=== PATIENT | female | born 1970 | race Caucasian/White ===

== ENCOUNTER 2019-08-10 16:40 | Emergency (ER) | payer OTHER ==
[~2019-08-10] VITALS: Ht 172.7 cm; Wt 90.9 kg
[~2019-08-10 16:40] MED LIST: HYDR-309 PO; HYDR25TA PO; LISI5TAB PO
[2019-08-10 16:43] VITALS: BP 132/89
[2019-08-10 17:05] LABS: GLUCOSE,POINT OF CARE 97 MG/DL (70-110)
[2019-08-10] MEDS ORDERED: ValACYclovir HCL 500 MG TABLET PO ONE (20:45)
[2019-08-10] MEDS ORDERED: GABAPENTIN 100 MG CAPSULE PO ONE (20:45)
== END 2019-08-10 21:15 | disposition home or self-care (01) ==
LOC: EMS 16:44
DX: B02.9 Zoster without complications (principal); I10 Essential (primary) hypertension; F17.210 Nicotine dependence, cigarettes, uncomplicated; Z91.040 Latex allergy status; Z79.899 Other long term (current) drug therapy

== ENCOUNTER 2021-03-29 14:53 | Inpatient (IN) | payer OTHER ==
[~2021-03-29] VITALS: Ht 172.7 cm; Wt 94.0 kg
[~2021-03-29 14:53] MED LIST changes: -HYDR25TA PO; +HYDR25TA2 PO
[2021-03-29] MEDS ORDERED: INSNPH SQ ×2 (15:03)
[2021-03-29] MEDS ORDERED: IBUP-1506 PO (15:03)
[2021-03-29] MEDS ORDERED: ONDANSETRON HCL 4 MG/2 ML VIAL IVP ONE (15:30)
[2021-03-29] MEDS ORDERED: MORPHINE SULFATE 4 MG/ML SYRINGE IVP ONE (15:30)
[2021-03-29] MEDS ORDERED: SODIUM CHLORIDE 0.9% 1,000 ML IV ONE (15:30)
[2021-03-29 16:05] LABS: EOSINOPHILS % (AUTO) 0.4 % (1.0-6.0); HEMATOCRIT 44.2 % (36-46); HEMOGLOBIN 14.6 g/dL (12.0-16.0); LYMPHOCYTES # (AUTO) 1.6 K/uL (1.0-4.8); LYMPHOCYTES % (AUTO) 21.3 % (22.0-44.0); MEAN CORPUSCULAR HEMOGLOBIN 30.6 pg (26.0-34.0); MEAN CORPUSCULAR HGB CONC 33.1 G/dL (31.0-37.0); MEAN CORPUSCULAR VOLUME 93 fL (80-100); MONOCYTES # (AUTO) 0.4 K/uL (0.1-1.0); MONOCYTES % (AUTO) 6.1 % (2.0-9.0); NEUTROPHILS # (AUTO) 5.3 K/uL (1.8-7.7); NEUTROPHILS % (AUTO) 71.2 % (40.0-70.0); PLATELET COUNT (AUTO) 407 K/uL (150-450); RED BLOOD CELL COUNT(AUTO) 4.79 MIL/uL (4.00-5.20); RED CELL DISTRIBUTION WIDTH 13.2 % (11.5-14.5)
[2021-03-29 16:12] LABS: APPEARANCE,URINE CLEAR (CLEAR); BILIRUBIN,URINE NEGATIVE (NEGATIVE); GLUCOSE, URINE (UA) NEGATIVE (NEGATIVE); KETONES,URINE NEGATIVE (NEGATIVE); LEUKOCYTE ESTERASE ,URINE NEGATIVE (NEGATIVE); NITRATE,URINE NEGATIVE (NEGATIVE); OCCULT BLOOD,URINE NEGATIVE (NEGATIVE); PROTEIN,URINE NEGATIVE (NEGATIVE); UROBILINOGEN,URINE 0.2 mg/dL (<=1.0)
[2021-03-29 16:15] LABS: ANION GAP 8 mmol/L (8-16); CALCIUM, TOTAL 9.5 mg/dL (8.8-10.5); CARBON DIOXIDE 28 mmol/L (22-29); CHLORIDE 102 mmol/L (98-107); CREATININE 0.77 mg/dL (0.60-1.30); GLOMERULAR FILTR. RATE CALC > 60 mL/min (>60); GLUCOSE,RANDOM 112 mg/dL (70-110); SODIUM SERUM 138 mmol/L (136-145); UREA NITROGEN, BLOOD 13 mg/dL (7-18)
[2021-03-29 16:17] LABS: INR 0.9 (0.9-1.1); PROTHROMBIN TIME 10.1 SEC (9.4-11.6)
[2021-03-29 16:27] LABS: BACTERIA,URINE Few /HPF (None Seen); RBC,URINE None Seen /HPF (0-2)
[2021-03-29 16:28] LABS: SQUAMOUS EPITHELIAL CELL,UR Few /LPF (None Seen); WBC,URINE 0-2 /HPF (0-5)
[2021-03-29 16:34] LABS: ALANINE AMINOTRANSFERASE 20 U/L (12-78); ALBUMIN 3.8 g/dL (3.4-5.0); ALKALINE PHOSPHATASE 75 U/L (46-116); ASPARTATE AMINOTRANSFERASE 15 U/L (15-37); BILIRUBIN,TOTAL 0.8 mg/dL (0.1-1.0); HCG,QUANTITATIVE < 1 mIU/mL (0-6); LIPASE 90 U/L (73-393); TOTAL PROTEIN, SERUM 8.6 g/dL (6.4-8.2)
[2021-03-29] MEDS ORDERED: LISI-893 PO (17:42)
[2021-03-29] MEDS ORDERED: KETOROLAC TROMETHAMINE 30 MG/ML VIAL IVP ONE (17:45)
[2021-03-29 17:58] LABS: COVID AG,FIA SOURCE NASOPHARYNGEAL
[2021-03-29] MEDS ORDERED: SODIUM CHLORIDE 0.9% 100 ML ONE (18:17)
[2021-03-29] MEDS ORDERED: IOHEXOL 350 MG/ML 100 ML VIAL ONE (18:17)
[2021-03-29] MEDS ORDERED: MAGNESIUM HYDROXIDE SUSPENSION 30 ML UDCUP PO PRN (20:00)
[2021-03-29] MEDS ORDERED: INSULIN LISPRO 100 UNITS/ML SQ PRN (20:00)
[2021-03-29] MEDS ORDERED: ZOLPIDEM TARTRATE 5 MG TABLET PO PRN (20:00)
[2021-03-29] MEDS ORDERED: DEXTROSE 50%-WATER 25 GM/50 ML SYRINGE IVP PRN (20:00)
[2021-03-29 21:01] VITALS: BP 157/103
[2021-03-29] MEDS: ACETAMINOPHEN 325 MG TABLET PO PRN (21:07)
[2021-03-29] MEDS: ONDANSETRON HCL 4 MG/2 ML VIAL IVP PRN (21:07)
[2021-03-29 23:10] VITALS: BP 146/88
[2021-03-29 23:37] LABS: GLUCOMETER DEV NAME(LOC) 5N.1C; GLUCOSE,POINT OF CARE 87 MG/DL (70-110)
[2021-03-30 03:35] VITALS: BP 136/78
[2021-03-30] MEDS: ACETAMINOPHEN 325 MG TABLET PO PRN ×2 (05:57→11:54)
[2021-03-30 07:13] VITALS: BP 141/89
[2021-03-30] MEDS: FAMOTIDINE 20 MG TABLET PO SCH (07:53)
[2021-03-30 11:18] LABS: GLUCOMETER DEV NAME(LOC) 5N.1C; GLUCOSE,POINT OF CARE 94 MG/DL (70-110)
[2021-03-30 11:48] VITALS: BP 146/78
[2021-03-30] MEDS: ONDANSETRON HCL 4 MG/2 ML VIAL IVP PRN (11:54)
[2021-03-30] MEDS ORDERED: SODIUM CHLORIDE 0.9% 1,000 ML IV ONE (13:15)
[2021-03-30] MEDS: IBUPROFEN 400 MG TABLET PO PRN (16:00)
[2021-03-30] MEDS: HEPARIN SODIUM,PORCINE 5,000 UNITS/ML VIAL SQ SCH ×2 (16:00→23:52)
[2021-03-30 16:20] VITALS: BP 120/69
[2021-03-30 17:18] LABS: GLUCOMETER DEV NAME(LOC) 5S.1; GLUCOSE,POINT OF CARE 89 MG/DL (70-110)
[2021-03-30 17:58] LABS: GLUCOMETER DEV NAME(LOC) 5S.2B; GLUCOSE,POINT OF CARE 96 MG/DL (70-110)
[2021-03-30 20:01] VITALS: BP 128/75
[2021-03-31] VITALS (7 sets, daily range): BP systolic 121–144; BP diastolic 70–89
[2021-03-31 03:18] LABS: GLUCOMETER DEV NAME(LOC) 5N.1C; GLUCOSE,POINT OF CARE 96 MG/DL (70-110)
[2021-03-31] MEDS: FAMOTIDINE 20 MG TABLET PO SCH (08:43)
[2021-03-31] MEDS: HEPARIN SODIUM,PORCINE 5,000 UNITS/ML VIAL SQ SCH ×3 (08:43→23:34)
[2021-03-31] MEDS: IBUPROFEN 400 MG TABLET PO PRN (08:43)
[2021-03-31 10:10] LABS: GLUCOMETER DEV NAME(LOC) 5N.1C; GLUCOSE,POINT OF CARE 83 MG/DL (70-110)
[2021-03-31] MEDS ORDERED: BISMUTH SUBSALICYLATE 524 MG/30 ML SUSPENSION UDCUP PO PRN (13:30)
[2021-03-31] MEDS ORDERED: LEVOFLOXACIN 500 MG/D5% WATER 100 ML IV SCH (14:00)
[2021-03-31] MEDS ORDERED: SODIUM CHLORIDE 0.9% 500 ML IV ONE (14:39)
[2021-03-31] MEDS: ACETAMINOPHEN 325 MG TABLET PO PRN (14:52)
[2021-03-31] MEDS: LOPERAMIDE HCL 2 MG CAPSULE PO PRN ×2 (15:06→20:05)
[2021-03-31 17:50] LABS: C.DIFF GDH ANTIGEN, Stool Negative (Negative); C.DIFF TOXINS A&B, Stool Negative (Negative)
[2021-04-01 04:36] VITALS: BP 127/72
[2021-04-01 06:56] LABS: BASOPHILS % (AUTO) 0.8 % (0.0-2.0); HEMATOCRIT 42.5 % (36-46); HEMOGLOBIN 13.8 g/dL (12.0-16.0); LYMPHOCYTES # (AUTO) 3.1 K/uL (1.0-4.8); LYMPHOCYTES % (AUTO) 41.6 % (22.0-44.0); MEAN CORPUSCULAR HEMOGLOBIN 30.1 pg (26.0-34.0); MEAN CORPUSCULAR HGB CONC 32.6 G/dL (31.0-37.0); MEAN CORPUSCULAR VOLUME 93 fL (80-100); MONOCYTES # (AUTO) 0.6 K/uL (0.1-1.0); MONOCYTES % (AUTO) 8.4 % (2.0-9.0); NEUTROPHILS # (AUTO) 3.5 K/uL (1.8-7.7); NEUTROPHILS % (AUTO) 47.2 % (40.0-70.0); PLATELET COUNT (AUTO) 373 K/uL (150-450); RED BLOOD CELL COUNT(AUTO) 4.59 MIL/uL (4.00-5.20); RED CELL DISTRIBUTION WIDTH 13.3 % (11.5-14.5)
[2021-04-01 07:40] LABS: ALANINE AMINOTRANSFERASE 21 U/L (12-78); ALBUMIN 3.1 g/dL (3.4-5.0); ALKALINE PHOSPHATASE 60 U/L (46-116); ANION GAP 6 mmol/L (8-16); ASPARTATE AMINOTRANSFERASE 11 U/L (15-37); BILIRUBIN,TOTAL 0.7 mg/dL (0.1-1.0); CALCIUM, TOTAL 8.8 mg/dL (8.8-10.5); CARBON DIOXIDE 27 mmol/L (22-29); CHLORIDE 103 mmol/L (98-107); CREATININE 0.88 mg/dL (0.60-1.30); GLOMERULAR FILTR. RATE CALC > 60 mL/min (>60); GLUCOSE,RANDOM 89 mg/dL (70-110); SODIUM SERUM 136 mmol/L (136-145); UREA NITROGEN, BLOOD 16 mg/dL (7-18)
[2021-04-01] MEDS: FAMOTIDINE 20 MG TABLET PO SCH (08:13)
[2021-04-01] MEDS: HEPARIN SODIUM,PORCINE 5,000 UNITS/ML VIAL SQ SCH (08:14)
[2021-04-01] MEDS: ACETAMINOPHEN 325 MG TABLET PO PRN (08:14)
[2021-04-01 08:15] VITALS: BP 124/60
[2021-04-01 10:27] LABS: GLUCOMETER DEV NAME(LOC) 5S.2B; GLUCOSE,POINT OF CARE 118 MG/DL (70-110)
[2021-04-01] MEDS ORDERED: LEVOFLOXACIN 500 MG/D5% WATER 100 ML IV ONE (10:30)
[2021-04-01] MEDS ORDERED: FAMO20 PO (11:07)
[2021-04-01] MEDS ORDERED: LEVO-72 PO (11:17)
[2021-04-01 11:35] VITALS: BP 147/79
[2021-04-01] MEDS ORDERED: ACET-2247 PO (11:47)
[2021-04-01] MEDS ORDERED: BISM525O10 PO (11:49)
[2021-04-01] MEDS ORDERED: INSU100V SQ (11:51)
[2021-04-01] MEDS ORDERED: LOPE2 PO (11:52)
[2021-04-01] MEDS ORDERED: MOM30 PO (11:52)
[2021-04-01 15:26] LABS: GLUCOMETER DEV NAME(LOC) 5N.1C; GLUCOSE,POINT OF CARE 88 MG/DL (70-110)
[2021-04-01 15:26] LABS: GLUCOMETER DEV NAME(LOC) 5N.1C; GLUCOSE,POINT OF CARE 108 MG/DL (70-110)
[2021-04-01 15:45] LABS: GLUCOMETER DEV NAME(LOC) 5S.1; GLUCOSE,POINT OF CARE 81 MG/DL (70-110)
[2021-04-01 15:46] LABS: GLUCOMETER DEV NAME(LOC) 5S.2B; GLUCOSE,POINT OF CARE 116 MG/DL (70-110)
[2021-04-02] MEDS ORDERED: LEVOFLOXACIN 500 MG TABLET PO SCH (09:00)
== END 2021-04-01 14:55 | DRG 156 ==
LOC: EMS 15:03 → 5S 19:46
PROVIDERS: ADMIT Internal Medicine; ATTEND Internal Medicine
DX: H60.91 Unspecified otitis externa, right ear (principal); R55 Syncope and collapse; E11.9 Type 2 diabetes mellitus without complications; N83.201 Unspecified ovarian cyst, right side; E66.9 Obesity, unspecified; F17.200 Nicotine dependence, unspecified, uncomplicated; I10 Essential (primary) hypertension; Z68.31 Body mass index [BMI] 31.0-31.9, adult; Z91.040 Latex allergy status; Z20.822 Contact with and (suspected) exposure to COVID-19; Z85.3 Personal history of malignant neoplasm of breast; Z85.830 Personal history of malignant neoplasm of bone
CPT/HCPCS: 74177; 76856; 80053; 81001; 82962; 83605; 83690; 84484; 84702; 85025; 85610; 87324; 87449; 93005; 97116; 97162; 97530; 99285; A9575; J1644; J1885; J1956; J2270; J2405; J7030; J7040; J7050

== ENCOUNTER 2023-01-12 12:11 | Emergency (ER) | payer MEDICAID, OTHER ==
[~2023-01-12] VITALS: Ht 175.3 cm; Wt 106.8 kg
[~2023-01-12 12:11] MED LIST changes: +ACET-2247 PO; +BISM525O10 PO; +FAMO20 PO; -HYDR-309 PO; -HYDR25TA2 PO; +IBUP-1506 PO; +INSU100V SQ; +LEVO-72 PO; -LISI5TAB PO; +LOPE-232 PO; +MAGN-169 PO
[2023-01-12] MEDS ORDERED: DOXY-354 PO (12:20)
[2023-01-12] MEDS ORDERED: METF-1211 PO ×2 (12:20→15:04)
[2023-01-12] MEDS ORDERED: LISI-892 PO (12:20)
[2023-01-12] MEDS ORDERED: HYDROCODONE/ACETAMINOPHEN 5-325 MG TABLET PO ONE (13:00)
[2023-01-12 13:25] LABS: BASOPHILS % (AUTO) 1.3 % (0.0-2.0); EOSINOPHILS % (AUTO) 2.4 % (1.0-6.0); HEMATOCRIT 39.5 % (36-46); HEMOGLOBIN 13.4 g/dL (12.0-16.0); LYMPHOCYTES # (AUTO) 2.2 K/uL (1.0-4.8); LYMPHOCYTES % (AUTO) 35.9 % (22.0-44.0); MEAN CORPUSCULAR HEMOGLOBIN 31.4 pg (26.0-34.0); MEAN CORPUSCULAR HGB CONC 33.8 G/dL (31.0-37.0); MEAN CORPUSCULAR VOLUME 93 fL (80-100); MONOCYTES # (AUTO) 0.5 K/uL (0.1-1.0); MONOCYTES % (AUTO) 7.7 % (2.0-9.0); NEUTROPHILS # (AUTO) 3.2 K/uL (1.8-7.7); NEUTROPHILS % (AUTO) 52.7 % (40.0-70.0); PLATELET COUNT (AUTO) 390 K/uL (150-450); RED BLOOD CELL COUNT(AUTO) 4.26 MIL/uL (4.00-5.20); RED CELL DISTRIBUTION WIDTH 13.3 % (11.5-14.5)
[2023-01-12 13:43] LABS: ANION GAP 7 mmol/L (8-16); CARBON DIOXIDE 26 mmol/L (22-29); CHLORIDE 104 mmol/L (98-107); CREATININE 0.85 mg/dL (0.60-1.30); GLOMERULAR FILTR. RATE CALC > 60 mL/min (>60); GLUCOSE,RANDOM 119 mg/dL (70-110); POTASSIUM 4.3 mmol/L (3.5-5.1); SODIUM SERUM 137 mmol/L (136-145); UREA NITROGEN, BLOOD 14 mg/dL (7-18)
[2023-01-12 13:49] LABS: ALANINE AMINOTRANSFERASE 12 U/L (12-78); ALBUMIN 3.6 g/dL (3.4-5.0); ALKALINE PHOSPHATASE 62 U/L (46-116); ASPARTATE AMINOTRANSFERASE 16 U/L (15-37); BILIRUBIN,TOTAL 0.7 mg/dL (0.1-1.0); TOTAL PROTEIN, SERUM 7.6 g/dL (6.4-8.2)
[2023-01-12] MEDS ORDERED: IBUP-1554 PO (15:04)
[2023-01-12] MEDS ORDERED: HYDR-4723 PO (15:04)
[2023-01-12] MEDS ORDERED: LISI-894 PO (15:04)
[2023-01-12] MEDS ORDERED: MECL-134 PO (15:06)
[2023-01-12 15:28] VITALS: BP 138/88
== END 2023-01-12 15:30 | disposition home or self-care (01) ==
LOC: EMS 12:15
DX: H53.8 Other visual disturbances (principal); R51.9 Headache, unspecified; R42 Dizziness and giddiness; I10 Essential (primary) hypertension; E11.9 Type 2 diabetes mellitus without complications; Z85.9 Personal history of malignant neoplasm, unspecified; Z91.040 Latex allergy status
CPT/HCPCS: 70450; 80053; 85025; 99284

== ENCOUNTER 2023-03-01 14:11 | Emergency (ER) | payer MEDICAID ==
[~2023-03-01] VITALS: Ht 175.3 cm; Wt 104.5 kg
[~2023-03-01 14:11] MED LIST changes: -ACET-2247 PO; -BISM525O10 PO; +DOXY-354 PO; -FAMO20 PO; +HYDR-4723 PO; -IBUP-1506 PO; +IBUP-1554 PO; -INSU100V SQ; -LEVO-72 PO; +LISI-892 PO; +LISI-894 PO; -LOPE-232 PO; -MAGN-169 PO; +MECL-134 PO; +METF-1211 PO
[2023-03-01 15:22] LABS: GLUCOMETER DEV NAME(LOC) ERT.5; GLUCOSE,POINT OF CARE 88 MG/DL (70-110)
[2023-03-01 16:05] LABS: BASOPHILS % (AUTO) 1.1 % (0.0-2.0); EOSINOPHILS % (AUTO) 0.7 % (1.0-6.0); HEMATOCRIT 41.6 % (36-46); LYMPHOCYTES % (AUTO) 21.9 % (22.0-44.0); MEAN CORPUSCULAR HEMOGLOBIN 31.4 pg (26.0-34.0); MEAN CORPUSCULAR HGB CONC 33.7 G/dL (31.0-37.0); MEAN CORPUSCULAR VOLUME 93 fL (80-100); MONOCYTES # (AUTO) 0.5 K/uL (0.1-1.0); MONOCYTES % (AUTO) 6.1 % (2.0-9.0); NEUTROPHILS # (AUTO) 6.4 K/uL (1.8-7.7); NEUTROPHILS % (AUTO) 70.2 % (40.0-70.0); PLATELET COUNT (AUTO) 420 K/uL (150-450); RED BLOOD CELL COUNT(AUTO) 4.46 MIL/uL (4.00-5.20); RED CELL DISTRIBUTION WIDTH 13.5 % (11.5-14.5)
[2023-03-01 16:11] LABS: ANION GAP 12 mmol/L (8-16); CALCIUM, TOTAL 9.2 mg/dL (8.8-10.5); CARBON DIOXIDE 26 mmol/L (22-29); CHLORIDE 100 mmol/L (98-107); CREATININE 0.97 mg/dL (0.60-1.30); GLOMERULAR FILTR. RATE CALC > 60 mL/min (>60); GLUCOSE,RANDOM 108 mg/dL (70-110); POTASSIUM 3.6 mmol/L (3.5-5.1); SODIUM SERUM 138 mmol/L (136-145)
[2023-03-01 16:24] LABS: ALANINE AMINOTRANSFERASE 18 U/L (12-78); ALBUMIN 3.7 g/dL (3.4-5.0); ALKALINE PHOSPHATASE 61 U/L (46-116); ASPARTATE AMINOTRANSFERASE 14 U/L (15-37); BILIRUBIN,TOTAL 1.2 mg/dL (0.1-1.0); HCG,QUANTITATIVE < 1 mIU/mL (0-6); TOTAL PROTEIN, SERUM 8.4 g/dL (6.4-8.2)
[2023-03-01 17:21] LABS: APPEARANCE,URINE TURBID (CLEAR); BILIRUBIN,URINE NEGATIVE (NEGATIVE); GLUCOSE, URINE (UA) NEGATIVE (NEGATIVE); KETONES,URINE TRACE mg/dL (NEGATIVE); LEUKOCYTE ESTERASE ,URINE LARGE (NEGATIVE); NITRATE,URINE POSITIVE (NEGATIVE); OCCULT BLOOD,URINE SMALL (NEGATIVE); PROTEIN,URINE 30-70 mg/dL (NEGATIVE); SPECIFIC GRAVITIY, URINE 1.018 (1.003-1.030); UROBILINOGEN,URINE <=1.0 mg/dL (<=1.0)
[2023-03-01 17:30] LABS: BACTERIA,URINE Many /HPF (None Seen); SQUAMOUS EPITHELIAL CELL,UR Moderate /LPF (None Seen); WBC,URINE 51-100 /HPF (0-5)
[2023-03-01] MEDS ORDERED: SULFAMETHOX/TRIMETH DS 800-160 MG/TABLET PO ONE (17:30)
[2023-03-01] MEDS ORDERED: PHENAZOPYRIDINE HCL 100 MG TABLET PO ONE (17:30)
[2023-03-01 18:50] VITALS: BP 135/60
[2023-03-01] MEDS ORDERED: PHEN-674 PO (18:51)
[2023-03-01] MEDS ORDERED: SULF-261 PO (18:51)
== END 2023-03-01 19:00 | disposition home or self-care (01) ==
LOC: EMS 14:23
DX: N39.0 Urinary tract infection, site not specified (principal); Z98.890 Other specified postprocedural states; Z91.040 Latex allergy status
CPT/HCPCS: 80053; 81001; 82962; 84702; 85025; 87086; 87186; 99283

== ENCOUNTER 2024-12-30 17:40 | Inpatient (IN) | payer MEDICAID, OTHER ==
[~2024-12-30] VITALS: Ht 175.3 cm; Wt 91.9 kg
[~2024-12-30 17:40] MED LIST changes: -DOXY-354 PO; -HYDR-4723 PO; -IBUP-1554 PO; -LISI-892 PO; +PHEN-674 PO; +SULF-261 PO
[2024-12-30 18:10] LABS: BASOPHILS % (AUTO) 0.9 % (0.0-2.0); EOSINOPHILS % (AUTO) 1.4 % (1.0-6.0); HEMATOCRIT 36.8 % (36-46); HEMOGLOBIN 12.2 g/dL (12.0-16.0); LYMPHOCYTES # (AUTO) 2.3 K/uL (1.0-4.8); LYMPHOCYTES % (AUTO) 42.2 % (22.0-44.0); MEAN CORPUSCULAR HEMOGLOBIN 33.5 pg (26.0-34.0); MEAN CORPUSCULAR HGB CONC 33.1 G/dL (31.0-37.0); MEAN CORPUSCULAR VOLUME 101 fL (80-100); MONOCYTES # (AUTO) 0.4 K/uL (0.1-1.0); MONOCYTES % (AUTO) 7.1 % (2.0-9.0); NEUTROPHILS # (AUTO) 2.6 K/uL (1.8-7.7); NEUTROPHILS % (AUTO) 48.4 % (40.0-70.0); PLATELET COUNT (AUTO) 313 K/uL (150-450); RED BLOOD CELL COUNT(AUTO) 3.64 MIL/uL (4.00-5.20); RED CELL DISTRIBUTION WIDTH 15.3 % (11.5-14.5); WHITE BLOOD COUNT (AUTO) 5.5 K/uL (4.5-11.0)
[2024-12-30 18:14] LABS: ANION GAP 7 mmol/L (8-16); CALCIUM, TOTAL 9.2 mg/dL (8.8-10.5); CARBON DIOXIDE 29 mmol/L (22-29); CHLORIDE 104 mmol/L (98-107); CREATININE 1.19 mg/dL (0.60-1.30); GLOMERULAR FILTR. RATE CALC 48 mL/min (>60); GLUCOSE,RANDOM 98 mg/dL (70-110); POTASSIUM 4.8 mmol/L (3.5-5.1); SODIUM SERUM 140 mmol/L (136-145); UREA NITROGEN, BLOOD 17 mg/dL (7-18)
[2024-12-30] MEDS: MORPHINE SULFATE 2 MG/ML SYRINGE IVP ONE (18:18)
[2024-12-30] MEDS: ACETAMINOPHEN 500 MG TABLET PO ONE (18:19)
[2024-12-30] MEDS: ONDANSETRON HCL 4 MG/2 ML VIAL IVP ONE (18:19)
[2024-12-30 18:20] LABS: ALBUMIN 3.6 g/dL (3.4-5.0); B-TYPE NATRIURETIC PEPTIDE 8 pg/mL (0-100); BILIRUBIN,DIRECT 0.1 mg/dL (0.00-0.20); BILIRUBIN,TOTAL 0.5 mg/dL (0.1-1.0); TOTAL PROTEIN, SERUM 7.4 g/dL (6.4-8.2)
[2024-12-30] MEDS ORDERED: SODIUM CHLORIDE 0.9% 100 ML ONE (18:23)
[2024-12-30] MEDS ORDERED: IOHEXOL 350 MG/ML 100 ML VIAL ONE (18:23)
[2024-12-30] MEDS ORDERED: 0.9% SODIUM CHLORIDE 10 ML SYRINGE IVP ONE (18:23)
[2024-12-30 18:24] LABS: CREATINE KINASE, TOTAL ONLY 168 U/L (26-192); TROPONIN I-HIGH SENSITIVITY 5 ng/L (<51)
[2024-12-30 18:43] LABS: APPEARANCE,URINE CLEAR (CLEAR); BILIRUBIN,URINE NEGATIVE (NEGATIVE); COLOR,URINE COLORLESS (YELLOW); GLUCOSE, URINE (UA) NEGATIVE (NEGATIVE); KETONES,URINE NEGATIVE (NEGATIVE); LEUKOCYTE ESTERASE ,URINE MODERATE (NEGATIVE); NITRATE,URINE NEGATIVE (NEGATIVE); OCCULT BLOOD,URINE NEGATIVE (NEGATIVE); PH,URINE 5.5 (5.0-8.0); PROTEIN,URINE NEGATIVE (NEGATIVE); SPECIFIC GRAVITIY, URINE 1.008 (1.003-1.030); UROBILINOGEN,URINE <=1.0 mg/dL (<=1.0)
[2024-12-30 18:54] LABS: BACTERIA,URINE Few /HPF (None Seen); RBC,URINE 0-2 /HPF (0-2); SQUAMOUS EPITHELIAL CELL,UR Moderate /LPF (None Seen)
[2024-12-30] MEDS ORDERED: DEXTROSE 50%-WATER 25 GM/50 ML SYRINGE IVP PRN (19:45)
[2024-12-30] MEDS ORDERED: ZOLPIDEM TARTRATE 10 MG TABLET PO PRN (19:45)
[2024-12-30] MEDS ORDERED: IPRATROPIUM BROMIDE 0.5 MG/2.5 ML NEB SOLUTION NEB PRN (19:45)
[2024-12-30] MEDS ORDERED: ALBUTEROL SULFATE 2.5 MG/0.5 ML NEB SOLUTION NEB PRN (19:45)
[2024-12-30] MEDS ORDERED: MORPHINE SULFATE 2 MG/ML SYRINGE IVP PRN (19:45)
[2024-12-30] MEDS ORDERED: MAGNESIUM HYDROXIDE SUSPENSION 30 ML UDCUP PO PRN (19:45)
[2024-12-30] MEDS ORDERED: LAMI150T33 PO (19:48)
[2024-12-30] MEDS ORDERED: SERT-158 PO (19:48)
[2024-12-30] MEDS ORDERED: LIDO76.56 TP (19:48)
[2024-12-30] MEDS ORDERED: LISI-894 PO (19:48)
[2024-12-30] MEDS ORDERED: TENO300 PO (19:48)
[2024-12-30] MEDS ORDERED: CALC200T31 PO (19:48)
[2024-12-30] MEDS ORDERED: DOLU50TA PO (19:48)
[2024-12-30] MEDS ORDERED: MECL-226 PO (19:48)
[2024-12-30] MEDS ORDERED: CALCIUM CARBONATE 500 MG CHEWABLE TABLET PO PRN (20:00)
[2024-12-30 20:31] LABS: TROPONIN I-HIGH SENSITIVITY 5 ng/L (<51)
[2024-12-30] MEDS: CefTRIAXone 1 GM/DEXTROSE 50 ML IV SCH (20:33)
[2024-12-30] MEDS: DOCUSATE SODIUM 100 MG CAPSULE PO SCH (20:33)
[2024-12-30] MEDS: FAMOTIDINE 20 MG/2 ML VIAL IVP SCH (20:33)
[2024-12-30] MEDS: MECLIZINE HCL 12.5 MG TABLET PO SCH (20:34)
[2024-12-30] MEDS: SERTRALINE HCL 50 MG TABLET PO SCH (20:34)
[2024-12-30 22:55] VITALS: BP 147/73; PULSE 53; RESP 18; TEMP 98.2; O2SAT 100
[2024-12-30] MEDS: NITROGLYCERIN 2% (1 GM=INCH) OINTMENT PACKET TP SCH (23:14)
[2024-12-30] MEDS: HYDROCODONE/ACETAMINOPHEN 5-325 MG TABLET PO PRN (23:14)
[2024-12-31 00:50] VITALS: BP 103/58; PULSE 61; RESP 18; TEMP 97.8; O2SAT 96
[2024-12-31 02:06] LABS: TROPONIN I-HIGH SENSITIVITY 6 ng/L (<51)
[2024-12-31 04:15] LABS: GLUCOMETER DEV NAME(LOC) 5N.2C; GLUCOSE,POINT OF CARE 84 MG/DL (70-110)
[2024-12-31 05:00] VITALS: BP 112/61; PULSE 65; RESP 19; TEMP 97.7; O2SAT 97
[2024-12-31 07:21] LABS: GLUCOMETER DEV NAME(LOC) 5N.2C; GLUCOSE,POINT OF CARE 126 MG/DL (70-110)
[2024-12-31 07:43] LABS: CHOL/HDL RATIO 2.9 (3.9-5.7)
[2024-12-31 07:44] LABS: HEMOGLOBIN A1C 5.5 % (3.8-5.6); TROPONIN I-HIGH SENSITIVITY 6 ng/L (<51)
[2024-12-31 07:55] VITALS: BP 110/55; PULSE 65; RESP 18; TEMP 98.1; O2SAT 98
[2024-12-31] MEDS: TENOFOVIR DISOPROXIL FUMARATE 300 MG TABLET PO SCH (09:02)
[2024-12-31] MEDS: PHENAZOPYRIDINE HCL 200 MG TABLET PO SCH (09:02)
[2024-12-31] MEDS: DOLUTEGRAVIR SODIUM 50 MG TABLET PO SCH (09:02)
[2024-12-31] MEDS: LISINOPRIL 20 MG TABLET PO SCH (09:03)
[2024-12-31] MEDS: ASPIRIN 81 MG CHEWABLE TABLET PO SCH (09:03)
[2024-12-31] MEDS: ACETAMINOPHEN 325 MG TABLET PO PRN (11:10)
[2024-12-31 11:40] VITALS: BP 116/55; PULSE 60; RESP 18; TEMP 98; O2SAT 97
[2024-12-31 11:50] LABS: GLUCOMETER DEV NAME(LOC) 5N.2C; GLUCOSE,POINT OF CARE 124 MG/DL (70-110)
[2024-12-31 15:43] VITALS: BP 96/45; PULSE 63; RESP 18; TEMP 98; O2SAT 95
[2024-12-31 17:35] LABS: GLUCOMETER DEV NAME(LOC) 5N.2C; GLUCOSE,POINT OF CARE 100 MG/DL (70-110)
[2024-12-31 20:06] VITALS: BP 105/53; PULSE 60; RESP 18; TEMP 98.3; O2SAT 98
[2024-12-31] MEDS ORDERED: SODIUM CHLORIDE 0.9% 250 ML IV ONE (20:42)
[2025-01-01 00:30] VITALS: BP 112/64; PULSE 74; RESP 18; TEMP 98.2; O2SAT 97
[2025-01-01] MEDS: ONDANSETRON HCL 4 MG/2 ML VIAL IVP PRN (00:36)
[2025-01-01 02:56] LABS: GLUCOMETER DEV NAME(LOC) 5N.2C; GLUCOSE,POINT OF CARE 117 MG/DL (70-110)
[2025-01-01 04:40] VITALS: BP 125/70; PULSE 74; RESP 18; TEMP 98.1; O2SAT 98
[2025-01-01 07:32] VITALS: BP 116/59; PULSE 78; RESP 18; TEMP 98.4; O2SAT 95
[2025-01-01 11:20] LABS: GLUCOMETER DEV NAME(LOC) 5N.2C; GLUCOSE,POINT OF CARE 132 MG/DL (70-110)
[2025-01-01 11:20] LABS: GLUCOMETER DEV NAME(LOC) 5N.2C; GLUCOSE,POINT OF CARE 173 MG/DL (70-110)
[2025-01-01] MEDS: INSULIN LISPRO 100 UNITS/ML SQ PRN (11:45)
[2025-01-01 11:50] VITALS: BP 101/58; PULSE 62; RESP 16; TEMP 97.9; O2SAT 100
[2025-01-01 15:41] VITALS: BP 98/57; PULSE 59; RESP 18; TEMP 98; O2SAT 99
[2025-01-01 19:58] VITALS: BP 102/58; PULSE 69; RESP 18; TEMP 98.1; O2SAT 98
[2025-01-01 20:36] LABS: GLUCOMETER DEV NAME(LOC) 5S.2D; GLUCOSE,POINT OF CARE 123 MG/DL (70-110)
[2025-01-02 08:36] LABS: GLUCOMETER DEV NAME(LOC) 5N.2C; GLUCOSE,POINT OF CARE 110 MG/DL (70-110)
== END 2025-01-01 22:20 | DRG 313 ==
LOC: EMS 20:39 → EDH 22:00 → 5N 22:47
PROVIDERS: ADMIT Hospitalist; ATTEND Hospitalist
DX: R07.89 Other chest pain (principal); R30.0 Dysuria; I10 Essential (primary) hypertension; E11.9 Type 2 diabetes mellitus without complications; R51.9 Headache, unspecified; Z85.3 Personal history of malignant neoplasm of breast; Z85.819 Personal history of malignant neoplasm of unspecified site of lip, oral cavity, and pharynx
CPT/HCPCS: 70450; 71045; 71275; 80048; 80061; 80076; 81001; 82550; 82962; 83036; 83880; 84484; 84703; 85025; 87086; 93005; 93306; 96374; 96375; 99285; J0696; J2270; J2405; J3490; J7050; 36415-L1; 36415-TC